=== PATIENT | female | born 1995 | race Caucasian/White ===

== ENCOUNTER 2019-09-11 21:33 | Emergency (ER) | payer MEDICAID ==
[~2019-09-11] VITALS: Ht 170.2 cm; Wt 115.7 kg
[2019-09-11 21:38] VITALS: BP 126/81
--- NOTE | 2019-09-11 21:51 | NUR ---
PT AMBULATED TO BED #12
--- NOTE | 2019-09-11 21:51 | NUR ---
PT 23 Y/O FEMALE BIB SELF FOR C/O 810 PAIN IN R BREAST. PT NOTED WITH RED, RAISED, AND HOT TO TOUCH MASS IN MEDIAL R BREAST. MASS PAINFULL TO TOUCH AND HAS RED UNEVEN BORDER. PT STATES "IT STARTED A PIMPLE ABOUT A WEEK AGO." PT AFEBRILE. RESPIRATIONS ARE EVEN AND UNALBORED. DENIES N/V/D. VSS. BED LOCKED AND IN LOWEST POSITION. MEDHX: DIABETES TYPE II ALLERGIES: NKA RX: METFORMIN
[2019-09-11] MEDS ORDERED: LIDOCAINE/EPI 1% 1:100000 20 ML VIAL INJ ONE (21:55)
--- NOTE | 2019-09-11 22:11 | NUR ---
AT BEDSIDE. I&D KIT AT BEDSIDE WITH LIDOCAINE.
[2019-09-11 22:44] VITALS: BP 126/81
--- NOTE | 2019-09-11 22:44 | NUR ---
Patient discharged with v/s stable. Written and verbal after care instructions given and explained. Patient alert, oriented and verbalized understanding of instructions. Ambulatory with steady gait. All questions addressed prior to discharge. ID band removed. Patient advised to follow up with PMD. Rx of NORCO, MOTRIN, AND KEFLEX given. Patient educated on indication of medication including possible reaction and side effects. Opportunity to ask questions provided and answered.
== END 2019-09-11 22:44 | disposition home or self-care (01) ==
LOC: MED 21:33
DX: J86.9 Pyothorax without fistula (principal); E11.9 Type 2 diabetes mellitus without complications; Z98.890 Other specified postprocedural states
CPT/HCPCS: 10060; 99282; J2001